=== PATIENT | male | born 1990 | race Caucasian/White ===

== ENCOUNTER 2023-02-23 08:29 | Emergency (ER) | payer SELFPAY ==
[2023-02-23] MEDS ORDERED: Lidocaine 4% Patch ONE (09:44)
[2023-02-23] MEDS ORDERED: Acetaminophen 500 MG TAB ONE (09:44)
[2023-02-23] MEDS ORDERED: Ketorolac Tromethamine 30 MG/ML VIAL ONE (09:44)
== END 2023-02-23 11:04 | disposition home or self-care (01) ==
LOC: MADERS 08:29
DX: M54.42 Lumbago with sciatica, left side (principal); Z87.891 Personal history of nicotine dependence
CPT/HCPCS: 86140; 96372; 99283; J1885